=== PATIENT | female | born 1985 | race Caucasian/White ===

== ENCOUNTER → 2016-08-20 | Outpatient (CLI) | payer OTHER ==
[~2016-08-20] MED LIST: FERR1TAB23; PRENTAB26 PO
[2016-08-20 16:10] LABS: ALT/SGPT 41 U/L (12-78); AST/SGOT 24 U/L (15-37); BLOOD UREA NITROGEN 12 mg/dl (7-18); BUN/CREATININE RATIO 27.5 (10-20); CALCIUM 9.1 mg/dl (8.5-10.1); CARBON DIOXIDE 27 mmol/L (21-32); CHLORIDE 110 mmol/L (98-107); CREATININE 0.44 mg/dl (0.60-1.20); GLUCOSE 114 mg/dl (70-99); MAGNESIUM 2.1 mg/dl (1.8-2.4); SODIUM 143 mmol/L (136-145)
[2016-08-20 16:13] LABS: ALB/GLOB RATIO 0.8 (0.9-2); ALKALINE PHOSPHATASE 237 U/L (45-117); PHOSPHORUS 4.2 mg/dl (2.5-4.9)
== END | disposition home or self-care (01) ==
LOC: C.LAB1850 14:33
PROVIDERS: ATTEND Internal Medicine Endocrinology, Diabetes & Metabolism
DX: R79.89 Other specified abnormal findings of blood chemistry (principal); E04.9 Nontoxic goiter, unspecified

== ENCOUNTER → 2016-08-22 | Outpatient (CLI) | payer OTHER ==
--- NOTE | 2016-08-22 08:21 | DIAGNOSTIC IMAGING REPORT ---
THYROID ULTRASOUND HISTORY: Thyroid enlargement GOITER COMPARISON: None. FINDINGS: Right lobe: Maximum dimension 6.2 cm. Uniform echogenicity Left lobe: Maximum dimension 5.6 cm. Uniform echogenicity. Isthmus: No nodules. IMPRESSION: Mild thyroid enlargement. No significant focal nodularity. Electronically signed by: Zenon Bradshaw M.D. 08/22/2016 8:20 AM Dictated Date/Time: 08/22/2016 8:19 AM
== END | disposition home or self-care (01) ==
LOC: C.ULTRBC 07:50
PROVIDERS: ATTEND Internal Medicine Endocrinology, Diabetes & Metabolism
DX: E04.9 Nontoxic goiter, unspecified (principal)

== ENCOUNTER → 2016-09-24 | Outpatient (CLI) | payer OTHER ==
[2016-09-29 16:37] LABS: TSI 527 % baseline (<140)
== END | disposition home or self-care (01) ==
LOC: C.LABBC 13:47
PROVIDERS: ATTEND Internal Medicine Endocrinology, Diabetes & Metabolism
DX: E04.9 Nontoxic goiter, unspecified (principal); E05.90 Thyrotoxicosis, unspecified without thyrotoxic crisis or storm

== ENCOUNTER → 2016-11-20 | Outpatient (CLI) | payer OTHER ==
[2016-11-20 14:23] LABS: THYROID STIMULATING HORMONE 0.007 uIu/ml (0.300-4.500)
== END | disposition home or self-care (01) ==
LOC: C.LABBC 10:40
PROVIDERS: ATTEND Internal Medicine Endocrinology, Diabetes & Metabolism
DX: E04.9 Nontoxic goiter, unspecified (principal)

== ENCOUNTER → 2016-12-26 | Outpatient (CLI) | payer OTHER ==
[2016-12-26 18:17] LABS: ALKALINE PHOSPHATASE 251 U/L (45-117); ALT/SGPT 23 U/L (12-78); AST/SGOT 16 U/L (15-37); THYROID STIMULATING HORMONE < 0.005 uIu/ml (0.300-4.500)
== END | disposition home or self-care (01) ==
LOC: C.LAB1850 16:01
PROVIDERS: ATTEND Internal Medicine Endocrinology, Diabetes & Metabolism
DX: R74.8 Abnormal levels of other serum enzymes (principal); E05.90 Thyrotoxicosis, unspecified without thyrotoxic crisis or storm

== ENCOUNTER → 2016-12-31 | Outpatient (CLI) | payer OTHER ==
[2016-12-31 11:43] LABS: CALCIUM URINE < 5.0 mg/dl; URINE COLLECTION TIME 24 HOURS
[2016-12-31 11:51] LABS: THYROID STIMULATING HORMONE < 0.005 uIu/ml (0.300-4.500)
[2016-12-31 14:05] LABS: CALCIUM 9.5 mg/dl (8.5-10.1); PHOSPHORUS 3.8 mg/dl (2.5-4.9)
== END | disposition home or self-care (01) ==
LOC: C.LABBC 07:47
PROVIDERS: ATTEND Internal Medicine Endocrinology, Diabetes & Metabolism
DX: R74.8 Abnormal levels of other serum enzymes (principal); M89.9 Disorder of bone, unspecified; E05.90 Thyrotoxicosis, unspecified without thyrotoxic crisis or storm

== ENCOUNTER → 2017-07-21 | Outpatient (CLI) | payer OTHER ==
[2017-07-21 17:53] LABS: TOTAL PROTEIN 8.6 gm/dl (6.4-8.2)
== END | disposition home or self-care (01) ==
LOC: C.LAB1850 16:31
PROVIDERS: ATTEND Internal Medicine Endocrinology, Diabetes & Metabolism
DX: E05.90 Thyrotoxicosis, unspecified without thyrotoxic crisis or storm (principal); R74.8 Abnormal levels of other serum enzymes